=== PATIENT | female | born 1970 | race Caucasian/White ===

== ENCOUNTER → 2017-03-06 | Outpatient (CLI) | payer OTHER ==
--- NOTE | 2017-03-09 16:38 | US ---
EXAM DESCRIPTION: Soft Tissue,Head/Neck CLINICAL HISTORY: SWOLLEN LYMPH NODES COMPARISON: None Available. TECHNIQUE: Transcutaneous scanning: Two-dimensional and Doppler modes. FINDINGS: Hypoechoic mass with well circumscribed borders and central echogenicity in the posterior right neck below the occiput. Central vascularity. Consistent with a lymph node. Since second lymph node abutting the first lymph node. Lymph node dimensions are 10 x 7 and 7 x 4 mm. Another similar appearing lymph node with central vascularity measures 9 x 9 mm. No cysts or large calcifications. IMPRESSION: Multiple lymph nodes in the posterior right neck just below the occiput. These do not appear reactive. Electronically signed by: Pedro Mai MD 03/09/2017 4:37 PM CDT
== END ==
LOC: US 11:06
PROVIDERS: ATTEND Nurse Practitioner Acute Care
DX: R59.9 Enlarged lymph nodes, unspecified (principal)

== ENCOUNTER → 2017-05-13 | Outpatient (CLI) | payer OTHER ==
--- NOTE | 2017-05-14 08:26 | US ---
EXAM DESCRIPTION: Soft Tissue,Head/Neck: ULTRASOUND. CLINICAL HISTORY: NECK MASS palpable on the left side. COMPARISON: None Available. TECHNIQUE: Transcutaneous scanning: Two-dimensional and Doppler modes. FINDINGS: In the area of palpable mass, is a 6.9 x 6.3 x 3.8 cm hypoechoic oval-shaped mass with well-defined casey and central vascular echogenicity. This is consistent with a lymph node. Smaller lymph nodes are also noted. No cyst. Oval-shaped heterogeneous mass with similar echoes to the surrounding subcutaneous fat. This mass measures 2.7 x 1.0 x 3.2 cm. Minimal vascularity on the periphery. No fluid component. No parenchymal edema. No large calcifications. IMPRESSION: 1. 3.2 cm mass as well as echogenic to the subcutaneous adipose tissue, most likely representing a lipoma. 2. 7 mm lymph node with normal appearance. Other smaller lymph nodes. No parenchymal edema or cysts. Electronically signed by: Pedro Mai MD 05/14/2017 8:25 AM [employer]LEPH[employer] INST[employer]
== END | disposition home or self-care (01) ==
LOC: US 13:44
PROVIDERS: ATTEND Family Medicine
DX: R22.1 Localized swelling, mass and lump, neck (principal)

== ENCOUNTER → 2017-05-22 | Outpatient (CLI) | payer OTHER | LOC: GMAM 13:53 | PROVIDERS: ATTEND Family Medicine | DX: R30.0 Dysuria (principal) ==

== ENCOUNTER → 2017-09-17 | Outpatient (CLI) | payer OTHER ==
--- NOTE | 2017-09-17 17:13 | MRI ---
EXAM DESCRIPTION: Brain w/wo Contrast. Magnetic resonance imaging. CLINICAL HISTORY: BLURRY VISION COMPARISON: None. TECHNIQUE: Multiplanar, multiple conventional MRI sequences without contrast. FINDINGS: Normal FLAIR and T2-weighted signal in the periventricular white matter and carroll-white matter junctions of the cerebral hemispheres. Normal signal in the bilateral basal ganglia. No hemorrhage, no cerebral edema, no mass-effect. Normal signal in the brainstem and cerebellar hemispheres. No hemorrhage, no cerebral edema, no mass-effect. Cortical sulci, ventricles, and other CSF spaces, and the subdural spaces are normally configured for age. No effacement or displacement. No midline shift. No extra-axial hemorrhage. Normal flow signal void in the major vessels of the [place], and the venous sinuses. IAC's are symmetric bilaterally. Normal signal in the bilateral mastoid air cells. Contour of the cerebellopontine angles is unremarkable. Pituitary gland occupies most of the sella. Base of the cerebellar tonsils is at the level of the foramen magnum. No significant abnormalities in the bilateral paranasal sinuses. The bony calvarium is intact. IMPRESSION: Normal MRI scan of the brain without and with gadolinium IV contrast. Normal noncontrast MRI diffusion scan with no evidence of acute or subacute infarction. Electronically signed by: Pedro Mai MD 09/17/2017 5:12 PM CDT
== END ==
LOC: MRI 09:00
PROVIDERS: ATTEND Family Medicine
DX: H53.9 Unspecified visual disturbance (principal)

== ENCOUNTER → 2017-12-08 | Outpatient (CLI) | payer OTHER | LOC: GMAM 16:41 | PROVIDERS: ATTEND Family Medicine | DX: R23.3 Spontaneous ecchymoses (principal) ==

== ENCOUNTER → 2018-03-29 | Outpatient (CLI) | payer OTHER ==
--- NOTE | 2018-03-29 11:49 | US ---
EXAM DESCRIPTION: Right upper quadrant sonogram limited CLINICAL HISTORY: GENERALIZED ABDOMINAL PAIN COMPARISON: Abdominal sonogram February 13, 2015 TECHNIQUE: Right upper quadrant ultrasound FINDINGS: Pancreas: Visualized portions of the pancreas are unremarkable. Bowel gas obscures some areas. Aorta/inferior vena cava: No aortic aneurysm. Normal inferior vena cava. Liver: The liver is homogeneous in texture with normal echogenicity of the hepatic parenchyma. No focal liver lesion or intrahepatic bile duct dilatation. No liver surface irregularity. Normal appearance of the portal vein and hepatic veins. Gallbladder: Some images are questionable but no definite stones are depicted on the sono images of the gallbladder. No gallbladder wall thickening or distention to suggest acute obstruction. Common bile duct: Normal caliber measuring 2.9 mm. Right kidney: Renal length is 10.7 cm. Normal cortical echogenicity. Cortical thickness is normal. No hydronephrosis is seen. No renal mass or shadowing calculus. IMPRESSION: No diagnostic abnormality is identified on sonographic examination of the right upper quadrant. Electronically signed by: Vernon Vázquez MD 03/29/2018 11:48 AM CDT
== END ==
LOC: US 09:31
PROVIDERS: ATTEND Family Medicine
DX: R10.84 Generalized abdominal pain (principal)

== ENCOUNTER → 2018-04-02 | Outpatient (CLI) | payer OTHER | LOC: LAB.O 12:40 | PROVIDERS: ATTEND Orthopaedic Surgery | DX: Z01.818 Encounter for other preprocedural examination (principal) ==

== ENCOUNTER → 2018-04-09 | Day surgery (SDC) | payer OTHER ==
--- NOTE | 2018-04-08 13:41 | HP ---
CHIEF COMPLAINT: Fracture of the left fifth metatarsal. HISTORY OF PRESENT ILLNESS: Ms. Akers is a 48-year-old female that fell while at work. She had the acute onset of pain on the lateral border of the foot. She had x-rays that showed displaced fracture of the fifth metatarsal. Because of the displaced nature, we talked about options. After discussing the risks, benefits and alternatives to operative therapy, the patient has given informed consent for that. PAST SURGICAL HISTORY: 1. Tonsillectomy. MEDICATIONS: None currently. ALLERGIES: NO KNOWN DRUG ALLERGIES. CODE STATUS: Full code. IMMUNIZATIONS: Up to date. FAMILY HISTORY: None pertinent to today's complaint. SOCIAL HISTORY: The patient does not smoke or use any illicit drugs. She does drink on occasion. REVIEW OF SYSTEMS: Negative except as indicated in the History of Present Illness. PHYSICAL EXAMINATION: VITAL SIGNS: Blood pressure 134/84. Pulse 84. Height 5'4". Weight 184 pounds. MENTAL STATUS: The patient is awake, alert, and is able to give a good history and participate in the physical. The patient is oriented to person, place and time. SKIN: Normal tone and turgor. MUSCULOSKELETAL: She has pain along the lateral aspect of the foot. Sensation is intact. The skin is intact. The extremity is warm and well perfused. She has full range of motion of the ankle. There is no deformity and no obvious malalignment of the lower extremity. She has had improvement in her bruising since her initial visit with us regarding this issue. IMAGING: X-rays show widened fifth metatarsal fracture. ASSESSMENT: 1. Metatarsal fracture. PLAN: The plan at this point is for open reduction and internal fixation. We have discussed the risks, benefits, and alternatives to that and the patient has given informed consent for that. [facility][id number] [facility]
[~2018-04-09] MED LIST: ACETAMINOPHEN IV 1000MG 100 ML ONE; BUPIVACAINE 0.5% 30 ML VIAL INJ ONE; BUPIVACAINE LIPOSOME 13.3 MG/ML VIAL INJ ONE; DEXAMETHASONE INJ 10 MG/ML VIAL ONE; HYDROcodone 5MG/APAP 325MG 1 EA TAB ONE; LACTATED RINGERS 1,000 ML BAG IV ONE; LACTATED RINGERS 1,000 ML ONE; LIDOCAINE 1% 10 ML VIAL INJ ONE; METOCLOPRAMIDE HCL INJ 10 MG/2 ML VIAL ONE; MIDAZOLAM INJ 2 MG/2 ML VIAL ONE; PROPOFOL 200 MG/20 ML VIAL IV ONE; SODIUM CHL 0.9% 100ML MINI-BAG 100 ML IVPB ONE; ceFAZolin SODIUM 1 GM VIAL ONE; ePHEDrine SULF 50 MG/ML ONE; fentaNYL CITRATE INJ 50 MCG/ML AMP ONE; raNITIdine HCL INJ 25 MG/ML VIAL ONE
[2018-04-09 08:24] VITALS: O2SAT 96
[2018-04-09] MEDS: ceFAZolin SODIUM 1 GM VIAL ONE ×4 (09:09→10:41)
[2018-04-09] MEDS: VANCOMYCIN HCL INJ 1,000 MG VIAL IVPB ONE ×2 (09:21→10:41)
[2018-04-09 13:06] VITALS: BP 111/67; TEMP 97.5
--- NOTE | 2018-04-20 15:05 | OP ---
DATE OF PROCEDURE: 04/09/18 PREOPERATIVE DIAGNOSIS: 1. Displaced fifth metatarsal fracture. POSTOPERATIVE DIAGNOSIS: 1. Displaced fifth metatarsal fracture. PROCEDURE: 1. Open reduction and internal fixation of fifth metatarsal fracture. SURGEON: Sam Smith MD. PAPER REWINDER OPERATOR: Pedro Rodríguez CST, SA-C. ANESTHESIA: General anesthesia. COMPLICATIONS: None. FINDINGS: Displaced, comminuted fracture of the fifth metatarsal. INDICATION: Tayler has a history of injury where she fell on it and caused a fracture of the fifth metatarsal. Tayler and I discussed options for her, which would include closed treatment versus open treatment with plating. After discussing the risks, benefits and alternatives to operative therapy, she gave informed consent for that. PROCEDURE: The patient was brought to the Operating Room and placed in supine position. General anesthesia was induced and the patient's leg was sterilely prepped and draped. An incision was made along the lateral border of the fifth metatarsal and dissection was carried down to the fracture site. It was debrided and it was noted there were multiple fracture fragments. In addition to that, she did have somewhat osteoporotic bone. The fracture was provisionally reduced and I attempted to place a plate on the anterolateral aspect trying to obtain the best fixation possible. There were several fragments which were too small to be fixed, however, they did seem somewhat stable. Following that, the wound was very thoroughly irrigated and the wound was closed. Sterile dressings were placed. The patient was placed in a boot, awoken from anesthesia and taken to Recovery. POSTOPERATIVE PLAN: She is going to be strictly non-weightbearing. We will follow along to ensure that we have healing and once we start seeing healing, we will let her start putting weight on the foot. #[id number] [facility]
== END ==
LOC: AMB 05:24
PROVIDERS: ATTEND Orthopaedic Surgery
DX: S92.352A Displaced fracture of fifth metatarsal bone, left foot, initial encounter for closed fracture (principal); I10 Essential (primary) hypertension; K21.9 Gastro-esophageal reflux disease without esophagitis; J45.909 Unspecified asthma, uncomplicated; Z79.899 Other long term (current) drug therapy; W19.XXXA Unspecified fall, initial encounter; Y99.0 Civilian activity done for income or pay
CPT/HCPCS: 01480; 28485; 76000; C1713; J0690; J1100; J2250; J2765; J2780; J3010; J3370; J3490; J7050; J7120

== ENCOUNTER → 2018-06-04 | Outpatient (CLI) | payer OTHER ==
--- NOTE | 2018-06-04 10:56 | MRI ---
Study: MRI of the Left Foot. Indication: CLOSED FRACTURE OF LEFT FOOT Technique: Multiplanar, multi sequence MRI of the left foot was obtained without intravenous contrast. Comparison: Radiographs June 03, 2018. Findings: Prior ORIF of a distal diaphysis fracture of the fifth metatarsal noted. Associated susceptibility artifact from the surgical construct. There does appear to be marrow edema within the distal shaft and head/neck of the fifth metatarsal and is nonspecific. There is adjacent subcutaneous edema throughout the lateral aspects of the forefoot. No organized/drainable fluid collection is identified. No additional fracture sites identified. Lisfranc ligament intact. Trace tenosynovitis medial tendons and peroneal tendons. Tendinosis and longitudinal split tearing peroneus brevis tendon inferior to the lateral malleolus. Mild osteoarthritis first MTP joint. Impression: Prior ORIF of the distal fifth metatarsal shaft fracture with marrow edema at the repair site, not unexpected in the recent postoperative setting. Infection is however not excluded by this exam. CT could better evaluate the degree of healing of the fracture plane. Cellulitis throughout the forefoot, most pronounced laterally. No organized/drainable fluid collection. Trace tenosynovitis medial tendons and peroneal tendons with tendinosis and longitudinal split tearing of the peroneus brevis tendon inferior to the lateral malleolus. Electronically signed by: Ludwin Shah MD 06/04/2018 10:54 AM [facility]
== END ==
LOC: MRI 07:57
PROVIDERS: ATTEND Family Medicine
DX: S92.902S Unspecified fracture of left foot, sequela (principal); L03.116 Cellulitis of left lower limb

== ENCOUNTER → 2019-02-17 | Outpatient (CLI) | payer OTHER ==
--- NOTE | 2019-02-18 07:43 | MRI ---
EXAM DESCRIPTION: Lumbar Spine w/o Contrast : Magnetic Resonance Imaging. CLINICAL HISTORY: INTERVERTEBRAL DISC DISORDERS WITH RADICULOPATHY COMPARISON: None. TECHNIQUE: Multiplanar, multiple standard sequences, non contrast MRI, lumbar spine. FINDINGS: L5-S1: The disc is well visualized on axial T2 series 501, image 3. Hyperintense T2-weighted annular fissure in the posterior midline bulge of the otherwise desiccated disc abutting the thecal sac and the bilateral descending L5 nerve roots. Posterior elements unremarkable. Mild canal narrowing and mild to moderate bilateral foraminal narrowing. L4-L5: Normal signal in the disc with disc space preserved. No bulging. Minimal posterior flavum ligament thickening with normal facets. Bilateral foramina are patent. L3-L4: Normal signal in the disc with disc space preserved. Tiny Schmorl's node inferior L3 endplate. Posterior elements unremarkable. Canal and foramina are patent. L2-L3: Normal signal in the disc with disc space preserved. Posterior elements unremarkable. Canal and foramina are patent. L1-L2: Normal signal in the disc with disc space preserved. Old Schmorl's nodes in the superior inferior endplates. Posterior elements unremarkable. Canal and foramina are patent. Conus terminates just above this level. T12-L1: Normal signal in the disc with disc space preserved. Posterior elements unremarkable. Canal and foramina are patent. Normal curvature of the spine. Paravertebral soft tissues unremarkable. Distal cord normal signal and caliber. Hyperintense T1 and T2 circumscribed hemangiomas in the marrow L5 vertebral body, L4 vertebral body, L3 vertebral body and L2 vertebral body. Bone island low signal on all sequences at L2. Otherwise unremarkable marrow signal in the remaining vertebral bodies and the posterior elements. Vertebral bodies are not compressed at any level. IMPRESSION: 1. Posterior midline annular fissure and L5-S1 disc abutting the thecal sac and the bilateral descending L5 nerve roots. No canal or foraminal stenosis. 2. Minimal endplate changes at the remaining levels. No canal or foraminal stenosis. Electronically signed by: Pedro Mai MD 02/18/2019 7:42 AM CDT
== END ==
LOC: MRI 07:52
PROVIDERS: ATTEND Family Medicine
DX: M51.16 Intervertebral disc disorders with radiculopathy, lumbar region (principal); M51.17 Intervertebral disc disorders with radiculopathy, lumbosacral region

== ENCOUNTER → 2019-04-19 | Outpatient (CLI) | payer OTHER ==
--- NOTE | 2019-04-19 16:50 | MRI ---
EXAM DESCRIPTION: Cervical Spine: MRI. CLINICAL HISTORY: 49 years Female RADICULOPATHY CERVICAL REGION COMPARISON: MRI scan lumbar spine February 2019. TECHNIQUE: Multiplanar, high-field MRI, multiple sequences, non-contrast Cervical spine. FINDINGS: C2-C3: The disc and disc space are unremarkable. The left vertebral artery partially enters the left neural foramen abutting the exiting left C3 nerve. Canal and right neuroforamen are unremarkable. Facet joints are negative. Hyperintense T1 and T2 circumscribed hemangioma at C2 vertebral body. C3-C4: Disc and disc space unremarkable. Trace anterolisthesis. Small right uncinate spur with minimal narrowing right neural foramen. Canal and left neuroforamen are patent. Facet joints are negative. C4-C5: Disc desiccation minimal disc space loss with minimal anterior bulging. No posterior bulging. Facet joints are unremarkable. Canal and neural foramina are patent. C5-C6: Disc desiccation anterior bulging and minimal disc space loss. Minimal anterior endplate ridging. Bilateral uncinate spurs with moderate neural foraminal narrowing. Bilateral C6 nerve roots are seen in the neuroforamina. Mild canal narrowing. Facet joints negative. C6-C7: Disc desiccation minimal disc space loss. Minimal anterior bulging and endplate ridging. Bilateral uncinate spurs and mild neural foraminal narrowing. Mild posterior disc bulging to the left of midline. Facet joints unremarkable. C7-T1: Normal signal in the disc with disc space maintained. Bilateral neural foramina and canal are patent. Facet joints negative. Spinal alignment neutral. No cord compression or cord edema. Atlantoaxial joint minimal arthrosis and hypertrophy. Base of the cerebellar tonsils is at the level of the foramen magnum. Paravertebral soft tissues negative.. Vertebral bodies are not compressed at any level. Normal marrow signal in the remaining vertebral bodies and the posterior elements. IMPRESSION: 1. Multiple levels with desiccated discs with minimal disc space narrowing. Uncinate spur hypertrophy at some levels. 2. Minimal narrowing of the left C2-C3 neural foramen due to course of the left vertebral artery. 3. Bilateral moderate neuroforaminal narrowing C5-C6 caused by uncinate spurs but no apparent nerve root impingement by imaging. Electronically signed by: Pedro Mai MD 04/19/2019 4:49 PM [facility]
== END ==
LOC: MRI 08:50
PROVIDERS: ATTEND Family Medicine
DX: M50.121 Cervical disc disorder at C4-C5 level with radiculopathy (principal); M50.122 Cervical disc disorder at C5-C6 level with radiculopathy; M50.123 Cervical disc disorder at C6-C7 level with radiculopathy

== ENCOUNTER → 2019-12-30 | Outpatient (CLI) | payer BC ==
--- NOTE | 2020-01-02 08:56 | US ---
US THYROID CLINICAL STATEMENT:50 years Female OTHER SPECIFIED ENDOCRINE DISORDERS.. Hypothyroid. No palpable mass, no surgery thyroid. Current medical treatment for hyperthyroidism. COMPARISON: None TECHNIQUE: Transcutaneous scanning, grayscale and Doppler modes. FINDINGS: Size right thyroid lobe: 4.3 x 1.7 x 1.7 cm Size left thyroid lobe: 4.2 x 2.0 x 1.5 cm Size isthmus: 0.22 cm Estimated total number of nodules greater than or equal to 1 cm: 2. Heterogeneous. Nodule 1: Size: 1.5 x 1.0 x 0.9 cm Location: Right Mid. Posterior Composition: solid or almost completely solid: 2 points. Minimal vascularity. Echogenicity: hypoechoic: 2 points Shape: wider than tall: 0 points Margins: smooth: 0 points Echogenic foci: none: 0 points ACR Total Points: 4; ACR TI-RADS risk category: TR4 - moderately suspicious nodule. Nodule 2: Size: 1.4 x 0.8 x 0.7 cm Location: Right Mid. Posterior. Composition: solid or almost completely solid: 2 points. Minimal vascularity. Echogenicity: hypoechoic: 2 points Shape: wider than tall: 0 points Margins: smooth: 0 points Echogenic foci: none: 0 points ACR Total Points: 4; ACR TI-RADS risk category: TR4 - moderately suspicious nodule. Soft tissue around the thyroid gland shows no dominant solid mass, no distinct cyst, no fluid collection and no calcification. IMPRESSION: 1. Nodule 1: ACR TI-RADS 2017 Category TR4. Recommend: Follow-up ultrasound in 1 year.. Recommendations based upon [facility] Best [employer] recommendations and ACR TI-RADS 2017 guidelines. Please see below*. 2. Nodule 2: ACR TI-RADS 2017 Category TR4. Recommend: Follow-up ultrasound in 1 year. 3. Soft tissue around the thyroid gland is unremarkable. *ACR TI-RADS 2017 Recommendations for imaging follow-up of nodules: TR1: No FNA or follow up TR2: No FNA or follow up TR3: FNA if >/= 2.5 cm, follow up if 1.5 - 2.4 cm in 1, 3, and 5 years TR4: FNA if >/= 1.5 cm, follow up if 1.0 - 1.4 cm in 1, 2, 3, and 5 years TR5: FNA if >/= 1.0 cm, follow up if 0.5 - 0.9 cm every year for 5 years ACR TI-RADS recommends that no more than two nodules with the highest ACR TI-RADS total point should be biopsied and no more than four nodules should be followed. These recommendations do not apply to patients with increased risk for thyroid cancer or patients with symptomatic thyroid disease. Electronically signed by: Pedro Mai MD 01/02/2020 8:55 AM CDT
== END ==
LOC: US 08:08
PROVIDERS: ATTEND Family Medicine
DX: E34.8 Other specified endocrine disorders (principal); E04.2 Nontoxic multinodular goiter

== ENCOUNTER → 2020-03-22 | Outpatient (CLI) | payer BC | LOC: GMAM 10:28 | PROVIDERS: ATTEND Family Medicine | DX: E03.9 Hypothyroidism, unspecified (principal) ==

== ENCOUNTER → 2020-06-07 | Outpatient (CLI) | payer BC | LOC: GMAM 12:32 | PROVIDERS: ATTEND Family Medicine | DX: E03.9 Hypothyroidism, unspecified (principal) ==